=== PATIENT | female | born 1975 ===

== ENCOUNTER 2019-03-06 11:57 | Outpatient (CLI) | payer BC, SELFPAY ==
[2019-03-06 12:29] VITALS: BP 114/83; PULSE 105; RESP 18; TEMP 37.3; O2SAT 99; BMI 46.0
[2019-03-06] MEDS: lactated ringers 1,000 ML 999 ML IV (12:57)
[2019-03-06] MEDS: dexamethasone 4 mg/mL INJ 8 MG (12:58)
[2019-03-06] MEDS: ondansetron 2 mg/ML SDV 2 mL 4 MG IVP (12:58)
[2019-03-06 13:33] LABS: Basophils % 0.2 %; Eosinophils # 0.3 10^3/uL (0.0-0.8); Eosinophils % 3.1 %; Hematocrit 46.8 % (37.0-47.0); Hemoglobin 15.5 g/dL (11.5-15.3); Lymphocytes # 2.3 10^3/uL (0.8-4.8); Lymphocytes % 24.9 %; Mean Corpuscular HGB Conc 33.1 g/dL (30.0-36.0); Mean Corpuscular Hemoglobin 30.5 pg (28.0-34.0); Mean Corpuscular Volume 92.1 fL (81-99); Monocytes # 0.6 10^3/uL (0.2-0.9); Neutrophils # 5.9 10^3/uL (1.8-7.7); Neutrophils % 64.6 %; Nucleated Red Blood Cells % 0 %; Platelet Count 193 10^3/cmm (130-400); Red Blood Count 5.08 10^6/uL (4.1-5.3); White Blood Count 9.1 10^3/uL (4.0-10.0)
[2019-03-06] MEDS: pantoprazole 40 mg SDV (13:39)
[2019-03-06 13:51] LABS: Alanine Aminotransferase 16 U/L (0-33); Albumin Level 4.3 g/dL (3.5-5.2); Alkaline Phosphatase 48 IU/L (35-105); Anion Gap 20.6 (5-19); Aspartate Amino Transferase 21 U/L (0-32); Blood Urea Nitrogen 10 mg/dL (6-20); Calcium 10.2 mg/Dl (8.6-10.0); Carbon Dioxide 21 mmol/L (22-29); Chloride 102 mmol/L (98-107); Globulin 2.6 g/dL (1.3-4.6); Glomerular Filtration Rate 91.8 mL/min (90-130); Glucose 89 mg/dL (74-109); Potassium 3.6 mmol/L (3.5-5.1); Sodium 140 mmol/L (136-145); Total Bilirubin 0.5 mg/dL (0.15-1.2); Total Protein 6.9 g/dL (6.6-8.7)
== END 2019-03-06 11:58 | disposition home or self-care (01) ==
PROVIDERS: Family Provider Family Medicine; Visit Provider Surgery
DX: E86.0 Dehydration (principal); R11.0 Nausea
CPT/HCPCS: 80053; 85025; 96361; 96374; 96375; C9113; J1100; J2405; J3411

== ENCOUNTER 2020-05-27 10:09 | Outpatient (CLI) | payer BC, SELFPAY ==
--- NOTE | 2020-05-27 10:18 | USCV_ITS ---
Ashlyn Kristine Age: 44 Gender: F : 1975 Exam Date: 05/27/2020 10:34 Ordering Phys: Abdias Sarabia Technologist: Akua Degroot Exam Location: [facility]_ Indication: LLE PAIN AND SWELLING HISTORY: Lower extremity swelling. Lower extremity pain. PROCEDURES: Venous duplex imaging was performed in only the left lower extremity. The following venous structures were evaluated: common femoral vein, profunda vein, proximal portion of the greater saphenous vein, superficial femoral vein, and the popliteal vein. In addition, the posterior tibial and peroneal trunk were evaluated. Serial compression, augmentation maneuvers, and spectral Doppler flow evaluation were performed. FINDINGS: No evidence of DVT seen in any vessel visualized at this time. IN LEFT ANT CALF OF AOI FLUID COLLECTION SEEN CONCLUSIONS No evidence of left lower extremity DVT. Small subcutaneous fluid collection in upper calf area of concern Da Merino MD (Electronically Signed) Final Date: 27 May 2020 17:23 S
== END 2020-05-27 10:10 | disposition home or self-care (01) ==
LOC: RAD 10:14
PROVIDERS: Visit Provider Family Medicine
DX: R22.42 Localized swelling, mass and lump, left lower limb (principal); M79.89 Other specified soft tissue disorders; M79.604 Pain in right leg; M79.605 Pain in left leg
CPT/HCPCS: 93971

== ENCOUNTER 2022-06-25 09:21 | Outpatient (CLI) | payer BC, SELFPAY ==
--- NOTE | 2022-06-25 09:31 | MM_ITS ---
WS: [id number] Bilateral screening 3D tomosynthesis digital mammogram, 06/25/2022 Clinical Data: SCREENING Comparison: 10/19/2018, 07/26/2017. Findings: The breast parenchymal pattern shows fat replacement. No spiculated masses or clustered calcification s are seen. There are no secondary signs of carcinoma. There is a stable 0.7 cm nodule 4 cm from the nipple in the the right breast. MM/[id number] Impression: 1. Negative bilateral mammogram unchanged. 2. Recommend annual screening mammograms. BIRADS: 1-Negative FOLLOW UP: 1 Year Follow-up The CAD quality control checker was used.
== END 2022-06-25 09:22 | disposition home or self-care (01) ==
LOC: RAD 09:27
PROVIDERS: PCP Family Medicine; Visit Provider Family Medicine
DX: Z12.31 Encounter for screening mammogram for malignant neoplasm of breast (principal)
CPT/HCPCS: 77063; 77067

== ENCOUNTER → 2024-08-14 15:04 | Outpatient (BNVA) | payer BC, SELFPAY | PROVIDERS: PCP Family Medicine; Visit Provider Family Medicine Adult Medicine | DX: R30.9 Painful micturition, unspecified (principal); N30.01 Acute cystitis with hematuria | CPT/HCPCS: 81000 ==